=== PATIENT | female | born 1950 | race Caucasian/White ===

== ENCOUNTER → 2017-03-07 | Outpatient (CLI) | payer OTHER | LOC: LAB 14:08 | DX: N39.0 Urinary tract infection, site not specified (principal); B96.20 Unspecified Escherichia coli [E. coli] as the cause of diseases classified elsewhere ==

== ENCOUNTER → 2017-11-26 | Outpatient (CLI) | payer MEDICARE ==
[2017-11-26 14:51] LABS: ALBUMIN 3.8 g/dL (3.5-5.0); BUN/CREATININE RATIO 10.6 (6.0-26.0); CALCIUM 9.7 mg/dL (8.4-10.2); POTASSIUM 3.6 mmol/L (3.6-5.0); TOTAL BILIRUBIN 0.5 mg/dL (0.2-1.3); TOTAL PROTEIN 7.3 g/dL (6.3-8.2)
== END ==
LOC: LAB 14:07
PROVIDERS: Family Medicine
DX: I70.269 Atherosclerosis of native arteries of extremities with gangrene, unspecified extremity (principal)

== ENCOUNTER → 2018-02-04 | Outpatient (CLI) | payer MEDICARE ==
[2018-02-04 14:15] LABS: EOS # 0.5 (0.04-0.40); EOS % 5.3 % (1.0-5.0); HEMATOCRIT 37.8 % (37.0-47.0); HEMOGLOBIN 12.2 g/dL (12.5-16.0); MEAN CELL VOLUME 100 fl (78-100); MEAN CORPUSCULAR HEMOGLOBIN 32 pg (27-31); MEAN CORPUSCULAR HGB CONC 32 g/dL (33-37); MONO # 0.8 (0.20-0.80); NEU # 6.1 (1.40-6.50); PLATELET COUNT 236 K/mm3 (130-400); RED CELL DISTRIBUTION WIDTH 13.4 % (11.5-14.5); WHITE BLOOD COUNT 9.4 K/mm3 (4.8-10.8)
[2018-02-04 14:30] LABS: URINE APPEARANCE CLOUDY; URINE COLOR YELLOW; URINE PROTEIN(semi-quant) 3+ mg/dL (NEGATIVE)
[2018-02-04 14:31] LABS: URINE BILIRUBIN NEGATIVE (NEGATIVE); URINE BLOOD TRACE (NEGATIVE); URINE GLUCOSE NEGATIVE (NEGATIVE); URINE KETONE NEGATIVE (NEGATIVE); URINE LEUKOCYTE ESTERASE 2+ (NEGATIVE); URINE NITRATE POSITIVE (NEGATIVE); URINE UROBILINOGEN NORMAL (NORMAL); URINE WBC >50 /hpf (0-3)
== END ==
LOC: LAB 13:46
PROVIDERS: Family Medicine
DX: N18.4 Chronic kidney disease, stage 4 (severe) (principal); I10 Essential (primary) hypertension; N39.46 Mixed incontinence; R30.0 Dysuria; Z88.8 Allergy status to other drugs, medicaments and biological substances

== ENCOUNTER 2018-03-23 12:37 | Emergency (ER) | payer MEDICARE ==
[~2018-03-23] VITALS: Wt 64.7 kg
[2018-03-23] MEDS ORDERED: DULOXETINE30 MG PO (13:00)
[2018-03-23] MEDS ORDERED: CLOPIDOGREL75 M2 PO (13:00)
[2018-03-23] MEDS ORDERED: AMLODIPINE BESY10 MG PO (13:00)
[2018-03-23] MEDS ORDERED: BYSTOLIC20 MG PO (13:01)
[2018-03-23 13:11] LABS: EOS % 4.8 % (1.0-5.0); HEMATOCRIT 40.2 % (37.0-47.0); HEMOGLOBIN 12.4 g/dL (12.5-16.0); MEAN CELL VOLUME 104 fl (78-100); MEAN CORPUSCULAR HEMOGLOBIN 32 pg (27-31); MEAN CORPUSCULAR HGB CONC 31 g/dL (33-37); MONO # 1.2 (0.20-0.80); NEU # 6.3 (1.40-6.50); PLATELET COUNT 218 K/mm3 (130-400); RED BLOOD COUNT 3.87 M/mm3 (4.10-5.30); RED CELL DISTRIBUTION WIDTH 13.4 % (11.5-14.5); WHITE BLOOD COUNT 16.2 K/mm3 (4.8-10.8)
[2018-03-23 13:18] LABS: EOS # 0.8 (0.04-0.40); LYMPH# 7.6 (1.50-4.00)
[2018-03-23 13:23] LABS: ALBUMIN 3.3 g/dL (3.5-5.0); CALCIUM 9.3 mg/dL (8.4-10.2); POTASSIUM 4.1 mmol/L (3.6-5.0); TOTAL BILIRUBIN 0.4 mg/dL (0.2-1.3); TOTAL PROTEIN 6.3 g/dL (6.3-8.2)
[2018-03-23 13:31] LABS: TROPONIN-I 0.11 ng/mL (0.00-0.06)
[2018-03-23 13:35] LABS: CKMB ISOENZYME 2.9 ng/mL (0.6-3.5)
[2018-03-23 13:40] LABS: D-DIMER 12.26 mg/L FEU (0.15-0.50)
[2018-03-23 14:04] LABS: URINE APPEARANCE HAZY; URINE BILIRUBIN NEGATIVE (NEGATIVE); URINE BLOOD TRACE (NEGATIVE); URINE COLOR YELLOW; URINE GLUCOSE NEGATIVE (NEGATIVE); URINE KETONE NEGATIVE (NEGATIVE); URINE LEUKOCYTE ESTERASE NEGATIVE (NEGATIVE); URINE NITRATE NEGATIVE (NEGATIVE); URINE PROTEIN(semi-quant) 3+ mg/dL (NEGATIVE); URINE UROBILINOGEN NORMAL (NORMAL)
[2018-03-23 14:05] LABS: URINE MUCUS PRESENT (NOT PRESENT)
[2018-03-23 14:25] VITALS: BP 166/90
== END 2018-03-23 14:30 | disposition short-term general hospital (02) ==
LOC: ED 12:37
PROVIDERS: Physician Assistant
DX: R06.03 Acute respiratory distress (principal); A41.9 Sepsis, unspecified organism; J18.9 Pneumonia, unspecified organism; I13.0 Hypertensive heart and chronic kidney disease with heart failure and stage 1 through stage 4 chronic kidney disease, or unspecified chronic kidney disease; I50.9 Heart failure, unspecified; J44.9 Chronic obstructive pulmonary disease, unspecified; N18.9 Chronic kidney disease, unspecified; F17.210 Nicotine dependence, cigarettes, uncomplicated; Z66 Do not resuscitate; Z79.02 Long term (current) use of antithrombotics/antiplatelets
CPT/HCPCS: J1940; J2405; J2543; J2930; J7120

== ENCOUNTER → 2018-05-06 | Outpatient (CLI) | payer MEDICARE ==
[~2018-05-06] MED LIST: AMLODIPINE BESY10 MG PO; BYSTOLIC20 MG PO; CLOPIDOGREL75 M2 PO; DULOXETINE30 MG PO
== END ==
LOC: RAD 12:00
DX: M48.8X6 Other specified spondylopathies, lumbar region (principal); M48.061 Spinal stenosis, lumbar region without neurogenic claudication; M41.86 Other forms of scoliosis, lumbar region; G90.09 Other idiopathic peripheral autonomic neuropathy; G56.40 Causalgia of unspecified upper limb

== ENCOUNTER 2018-06-23 14:07 | Emergency (ER) | payer MEDICARE ==
[~2018-06-23] VITALS: Ht 165.1 cm; Wt 59.1 kg
[2018-06-23 15:19] LABS: HEMATOCRIT 40.1 % (37.0-47.0); HEMOGLOBIN 12.7 g/dL (12.5-16.0); MEAN CELL VOLUME 96 fl (78-100); MEAN CORPUSCULAR HEMOGLOBIN 31 pg (27-31); MEAN CORPUSCULAR HGB CONC 32 g/dL (33-37); MEAN PLATELET VOLUME 11.4 fl (7.4-10.4); PLATELET COUNT 206 K/mm3 (130-400); RED BLOOD COUNT 4.16 M/mm3 (4.10-5.30); RED CELL DISTRIBUTION WIDTH 14.2 % (11.5-14.5); WHITE BLOOD COUNT 14.3 K/mm3 (4.8-10.8)
[2018-06-23 15:21] LABS: ALBUMIN 3.5 g/dL (3.5-5.0); CALCIUM 9.7 mg/dL (8.4-10.2); POTASSIUM 5.7 mmol/L (3.6-5.0); PROTHROMBIN TIME 13.6 SECONDS (9.0-12.0); TOTAL BILIRUBIN 0.6 mg/dL (0.2-1.3); TOTAL PROTEIN 6.5 g/dL (6.3-8.2)
[2018-06-23] MEDS ORDERED: DULOXETINE60 MG PO (15:32)
[2018-06-23] MEDS ORDERED: ATORVASTATIN CA40 MG PO (15:32)
[2018-06-23] MEDS ORDERED: CARVEDILOL12.5 MG PO (15:32)
[2018-06-23] MEDS ORDERED: CLONIDINE HYDR0.2 MG PO (15:33)
[2018-06-23] MEDS ORDERED: ACETAMINOPHEN-H1 TA2 PO (15:33)
[2018-06-23] MEDS ORDERED: ASPIR LOW81 MG PO (15:33)
[2018-06-23] MEDS ORDERED: OXYCODONE PO (15:33)
[2018-06-23] MEDS ORDERED: DETROL LA 4MG4 MG PO (15:34)
[2018-06-23 15:47] LABS: TROPONIN-I < 0.03 ng/mL (0.00-0.06)
[2018-06-23 15:48] LABS: LYMPHOCYTE 8 % (20-51); MONOCYTE 11 % (3-10); NEUTROPHILS 80 % (42-75)
[2018-06-23 18:21] VITALS: BP 180/88
== END 2018-06-23 17:28 | disposition short-term general hospital (02) ==
LOC: ED 14:07
PROVIDERS: Nurse Practitioner Primary Care
DX: I13.2 Hypertensive heart and chronic kidney disease with heart failure and with stage 5 chronic kidney disease, or end stage renal disease (principal); I50.9 Heart failure, unspecified; N18.6 End stage renal disease; E87.5 Hyperkalemia; F17.200 Nicotine dependence, unspecified, uncomplicated; Z99.2 Dependence on renal dialysis; I73.9 Peripheral vascular disease, unspecified; Z95.820 Peripheral vascular angioplasty status with implants and grafts; Z79.02 Long term (current) use of antithrombotics/antiplatelets; Z79.899 Other long term (current) drug therapy; Z79.82 Long term (current) use of aspirin
CPT/HCPCS: J1815; J2270

== ENCOUNTER → 2018-07-08 | Outpatient (CLI) | payer MEDICARE ==
[2018-06-23 18:21] VITALS: BP 180/88
[~2018-07-08] MED LIST changes: +ACETAMINOPHEN-H1 TA2 PO; +ASPIR LOW81 MG PO; +ATORVASTATIN CA40 MG PO; +CARVEDILOL12.5 MG PO; +CLONIDINE HYDR0.2 MG PO; +DETROL LA 4MG4 MG PO; +DULOXETINE60 MG PO; +OXYCODONE PO
[2018-07-08 14:48] LABS: ALBUMIN 3.7 g/dL (3.5-5.0); DIRECT BILIRUBIN 0.5 mg/dL (0.0-0.4); TOTAL BILIRUBIN 0.5 mg/dL (0.2-1.3); TOTAL PROTEIN 7.1 g/dL (6.3-8.2)
== END ==
LOC: LAB 13:58
PROVIDERS: Family Medicine
DX: R53.83 Other fatigue (principal); I50.9 Heart failure, unspecified; N18.4 Chronic kidney disease, stage 4 (severe); E78.00 Pure hypercholesterolemia, unspecified; E04.9 Nontoxic goiter, unspecified; I70.269 Atherosclerosis of native arteries of extremities with gangrene, unspecified extremity

== ENCOUNTER → 2019-03-25 | Outpatient (CLI) | payer MEDICARE | LOC: RAD 14:00 | DX: M81.0 Age-related osteoporosis without current pathological fracture (principal); M46.84 Other specified inflammatory spondylopathies, thoracic region; J32.2 Chronic ethmoidal sinusitis; J32.0 Chronic maxillary sinusitis; Z95.9 Presence of cardiac and vascular implant and graft, unspecified ==

== ENCOUNTER → 2019-06-01 | Outpatient (CLI) | payer MEDICARE | LOC: MAMMO 14:26 | DX: Z12.31 Encounter for screening mammogram for malignant neoplasm of breast (principal); M81.0 Age-related osteoporosis without current pathological fracture; M89.8X9 Other specified disorders of bone, unspecified site ==

== ENCOUNTER → 2019-06-01 | Outpatient (CLI) | payer MEDICARE | LOC: RAD 14:27 → MAMMO 15:15 → RAD 15:15 | DX: Z12.31 Encounter for screening mammogram for malignant neoplasm of breast (principal); Z13.820 Encounter for screening for osteoporosis; M81.0 Age-related osteoporosis without current pathological fracture ==

== ENCOUNTER → 2019-06-24 | Outpatient (CLI) | payer MEDICARE ==
[2019-06-24 15:18] LABS: ALBUMIN 3.5 g/dL (3.4-4.8)
[2019-06-24 15:20] LABS: TOTAL PROTEIN 6.7 g/dL (6.2-8.1)
[2019-06-24 15:22] LABS: TOTAL BILIRUBIN 0.3 mg/dL (0.2-1.2)
[2019-06-24 15:26] LABS: DIRECT BILIRUBIN 0.2 mg/dL (0.0-0.5)
== END ==
LOC: LAB 14:50
PROVIDERS: Family Medicine
DX: I70.269 Atherosclerosis of native arteries of extremities with gangrene, unspecified extremity (principal); E78.00 Pure hypercholesterolemia, unspecified; R53.83 Other fatigue; I50.9 Heart failure, unspecified; E04.9 Nontoxic goiter, unspecified; N18.4 Chronic kidney disease, stage 4 (severe)

== ENCOUNTER 2020-11-13 13:12 | Emergency (ER) | payer MEDICARE ==
[2020-11-13 13:54] LABS: ALBUMIN 2.2 g/dL (3.4-4.8); CALCIUM 8.8 mg/dL (8.3-10.5); TOTAL BILIRUBIN 0.6 mg/dL (0.2-1.2); TOTAL PROTEIN 5.1 g/dL (6.2-8.1)
[2020-11-13 13:56] LABS: HEMOGLOBIN 12.1 g/dL (12.5-16.0); MEAN CELL VOLUME 101 fl (78-100); MEAN CORPUSCULAR HEMOGLOBIN 31 pg (27-31); MEAN CORPUSCULAR HGB CONC 30 g/dL (33-37); MEAN PLATELET VOLUME 11.9 fl (7.4-10.4); POTASSIUM 7.6 mmol/L (3.5-5.1); RED BLOOD COUNT 3.97 M/mm3 (4.10-5.30); RED CELL DISTRIBUTION WIDTH 14.5 % (11.5-14.5); WHITE BLOOD COUNT 36.4 K/mm3 (4.8-10.8)
[2020-11-13 13:57] LABS: PLATELET COUNT 21 K/mm3 (130-400)
[2020-11-13 13:58] LABS: ACANTHROCYTES 1+; LYMPHOCYTE 20 % (20-51); MONOCYTE 9 % (3-10); NEUTROPHILS 70 % (42-75)
[2020-11-13 14:33] LABS: D-DIMER > 35.20 mg/L FEU (0.15-0.50)
[2020-11-13 21:17] VITALS: BP 00/00
== END 2020-11-13 21:17 | disposition expired ==
LOC: ED 13:12
PROVIDERS: Physician Assistant
DX: I46.9 Cardiac arrest, cause unspecified (principal); I10 Essential (primary) hypertension; Z99.2 Dependence on renal dialysis; Z79.02 Long term (current) use of antithrombotics/antiplatelets; Z79.82 Long term (current) use of aspirin
CPT/HCPCS: J0171; J2310